=== PATIENT | male | born 1965 | race Caucasian/White ===

== ENCOUNTER → 2017-02-06 | Outpatient (CLI) | payer OTHER ==
[~2017-02-06] MED LIST: ASPCH81X PO; BUPR-79 PO; HYDR25TA4 PO; HYT/2 PO; IRBE1TAB50 PO; METO25TA56 PO; MULT-506 PO
[2017-02-06 17:10] LABS: ALT/SGPT 42 U/L (12-78); BLOOD UREA NITROGEN 12 mg/dl (7-18); BUN/CREATININE RATIO 13.6 (10-20); CALCIUM 8.7 mg/dl (8.5-10.1); CARBON DIOXIDE 25 mmol/L (21-32); CHLORIDE 108 mmol/L (98-107); CHOLESTEROL 194 mg/dl (0-200); CREATININE 0.86 mg/dl (0.60-1.40); GLUCOSE 94 mg/dl (70-99); POTASSIUM 3.5 mmol/L (3.5-5.1); SODIUM 140 mmol/L (136-145); TRIGLYCERIDES 67 mg/dl (0-150); VERY LOW DENSITY LIPOPROT CALC 13 mg/dl
[2017-02-06 17:20] LABS: ALB/GLOB RATIO 1.4 (0.9-2); ALKALINE PHOSPHATASE 39 U/L (45-117); AST/SGOT 24 U/L (15-37); HDL CHOLESTEROL 64 mg/dl; LDL CHOLESTEROL CALCULATED 117 mg/dl; THYROID STIMULATING HORMONE 0.738 uIu/ml (0.300-4.500)
== END | disposition home or self-care (01) ==
LOC: C.LABBFT 16:48
PROVIDERS: ATTEND Physician Assistant Medical
DX: Z12.5 Encounter for screening for malignant neoplasm of prostate (principal); I10 Essential (primary) hypertension

== ENCOUNTER → 2017-06-01 | Outpatient (CLI) | payer OTHER | END | disposition home or self-care (01) | LOC: C.PATHSPEC 17:41 | PROVIDERS: ATTEND Dentist Oral and Maxillofacial Surgery | DX: Q89.9 Congenital malformation, unspecified (principal); L85.9 Epidermal thickening, unspecified; R23.4 Changes in skin texture ==